=== PATIENT | male | born 1945 | race Caucasian/White ===

== ENCOUNTER 2018-10-02 10:32 | Emergency (ER) | payer MEDICARE ==
[2018-10-02] MEDS ORDERED: TAMS0.4C25 PO (10:53)
[2018-10-02] MEDS ORDERED: CRAN1TAB10 PO (10:54)
--- NOTE | 2018-10-02 11:00 | ER Report ---
History and Physical Time Seen By MD: 10:57 Hx. of Stated Complaint: HAD A CATHETER PLACED ON FRIDAY FOR [place]URIA. WAS WORKING FINE. OUTPUT STARTED TO DECREASE THIS MORNING. ONL GOT 100Ml OUT THIS MORNING. HE IS NOW HAVING PAIN AT TIP OF PENIS AND RIGHT FLANK PAIN. STATES HE HAD A CATHETER INSERTED 2-3 MONTHS AGO FOR SAME ISSUE DUE TO EBNLARGED PROSTATE HPI/ROS CHIEF COMPLAINT: Urinary retention HISTORY OF PRESENT ILLNESS: This is a 73-year-old male who presents to the emergency department for urinary retention. Patient has been traveling for work, was in [place] for a conference, had the inability to urinate, went to the emergency department where the end up placing a Mccall catheter, left in place sent home with a leg bag. Patient is on his way back through and is unable to produce urine through the Mccall catheter, has pain and distention around her bladder. Also having some mild right flank pain, has recently had enlarged prostate problems and had a Mccall catheter placed about 3 months ago. After that was removed has not had any problems. No fever chills. No nausea vomiting. No diarrhea. REVIEW OF SYSTEMS: Respiratory: No cough, no dyspnea. Cardiovascular: No chest pain, no palpitations. Gastrointestinal: No vomiting, no abdominal pain. Genitourinary: As above. Musculoskeletal: No back pain. Allergies: Coded Allergies: No Known Drug Allergies (Unverified , 10/02/18) Home Meds Active Scripts Cephalexin 500 Mg Tab (KEFLEX 500 MG TAB) 500 Mg Tablet, 500 MG PO Q6H for 10 Days, #40 TAB 0 Refills Prov:TRAVON SOLOMONP-BC 10/02/18 Belladonna Alkaloids/Opium (BELLADONNA-OPIUM 16.2-30 SUPP) 30 Mg Supp, 30 MG ID BID PRN for prn, #6 SUPP 0 Refills Prov:TRAVON SOLOMONP-BC 10/02/18 Reported Medications Cranberry Conc/C/Bacill Coag (AZO CRANBERRY TABLET) 1 Each Tablet, 1 EACH PO TID 10/02/18 Tamsulosin Hcl (FLOMAX) 0.4 Mg Cap.er.24h, 0.4 MG PO QDAY, CAP 10/02/18 Past Medical/Surgical History Patient has a past medical surgical history of wearing glasses, bilateral hernia surgery, enlarged prostate, urinary retention. Reviewed Nurses Notes: Yes Constitutional Vital Sign - Last 24 Hours 10/02/18 10/02/18 10/02/18 10/02/18 10:45 10:47 10:50 11:00 Temp 98.2 Pulse 101 114 Resp 18 B/P (MAP) 155/103 145/119 (128) Pulse Ox 98 98 O2 Delivery Room Air Room Air 10/02/18 10/02/18 10/02/18 10/02/18 11:15 14:28 14:30 14:35 Pulse 73 72 86 81 Resp 16 B/P (MAP) 168/103 (124) Pulse Ox 96 93 94 92 O2 Delivery Room Air 10/02/18 10/02/18 10/02/18 10/02/18 14:40 14:45 14:50 14:55 Pulse 74 78 74 73 Pulse Ox 94 94 97 94 10/02/18 10/02/18 15:00 15:02 Pulse 71 82 B/P (MAP) 153/89 (110) 153/89 (110) Pulse Ox 95 Physical Exam General Appearance: The patient is alert, has no immediate need for airway protection and no current signs of toxicity. Eyes: Pupils equal and round no injection. Respiratory: Chest is non tender, lungs are clear to auscultation. Cardiac: regular rate and rhythm. Gastrointestinal: Abdomen is soft and non tender, no masses, bowel sounds normal. Pain around the suprapubic region with palpation. Musculoskeletal: Neck: Neck is supple and non tender. Extremities have full range of motion and are non tender. Skin: No rashes or lesions. DIFFERENTIAL DIAGNOSIS: After history and physical exam differential diagnosis was considered for urinary retention including but not limited to medication side effect, neurologic causes, outflow obstruction including prostatic hypertrophy, and blood. Medical Decision Making Data Points Laboratory Hematology Test 10/02/18 11:35 Urine Color Candler Urine Clarity Clear Urine pH 7.0 pH (4.8-9.5) Urine Specific Eccles 1.015 Urine Protein Trace mg/dL (NEGATIVE) Urine Glucose (UA) Negative mg/dL (NEGATIVE) Urine Ketones Negative mg/dL (NEGATIVE) Urine Blood Moderate (NEGATIVE) Urine Nitrite Negative (NEGATIVE) Urine Bilirubin Small (NEGATIVE) Urine Urobilinogen 0.2 mg/dL (0.2-1.9) Urine Leukocyte Esterase Negative (NEGATIVE) Urine RBC 50-75 /HPF (0-2/HPF) Urine WBC 0-1 /HPF (0-5/HPF) Urine Squamous Epithelial Cells None /LPF (NONE-FEW) Urine Bacteria Negative /HPF (NONE-FEW) Urine Mucus None /HPF (NONE-FEW) Chemistry Test 10/02/18 11:35 Urine Color Candler Urine Clarity Clear Urine pH 7.0 pH (4.8-9.5) Urine Specific Eccles 1.015 Urine Protein Trace mg/dL (NEGATIVE) Urine Glucose (UA) Negative mg/dL (NEGATIVE) Urine Ketones Negative mg/dL (NEGATIVE) Urine Blood Moderate (NEGATIVE) Urine Nitrite Negative (NEGATIVE) Urine Bilirubin Small (NEGATIVE) Urine Urobilinogen 0.2 mg/dL (0.2-1.9) Urine Leukocyte Esterase Negative (NEGATIVE) Urine RBC 50-75 /HPF (0-2/HPF) Urine WBC 0-1 /HPF (0-5/HPF) Urine Squamous Epithelial Cells None /LPF (NONE-FEW) Urine Bacteria Negative /HPF (NONE-FEW) Urine Mucus None /HPF (NONE-FEW) Urinalysis Test 10/02/18 11:35 Urine Color Candler Urine Clarity Clear Urine pH 7.0 pH (4.8-9.5) Urine Specific Eccles 1.015 Urine Protein Trace mg/dL (NEGATIVE) Urine Glucose (UA) Negative mg/dL (NEGATIVE) Urine Ketones Negative mg/dL (NEGATIVE) Urine Blood Moderate (NEGATIVE) Urine Nitrite Negative (NEGATIVE) Urine Bilirubin Small (NEGATIVE) Urine Urobilinogen 0.2 mg/dL (0.2-1.9) Urine Leukocyte Esterase Negative (NEGATIVE) Urine RBC 50-75 /HPF (0-2/HPF) Urine WBC 0-1 /HPF (0-5/HPF) Urine Squamous Epithelial Cells None /LPF (NONE-FEW) Urine Bacteria Negative /HPF (NONE-FEW) Urine Mucus None /HPF (NONE-FEW) ED Course/Re-evaluation ED Course The patient was admitted to room. A history of physical were obtained. Differential diagnoses were considered. Initially patient appears very comfortable, unable to find a comfortable position, states he has lots of pressure around the bladder and around the to the penis. After speaking with patient, he felt that the catheter that was placed while he was in [place] was not placed properly, we did remove the catheter an 18 Swiss coud catheter was placed, did get 650 mils of bloody urine out, urine sent to lab, negative UA. After about 30 minutes patient began to feel as though he had urinate again, however unable to, the catheter that was placed was flushed with no return, I did speak with Dr. Kuo the urologist on-call, he suggested removing the catheter and trying a 20 or 22 Swiss, a 22 Swiss catheter was placed, patient tolerated well, did get proximal 0.6 mm of urine out, patient had significant relief of his symptoms. Dr. Kuo did come in to evaluate the patient. I did continue monitoring the patient for at least another hour and a half, patient still feeling okay, no urinary retention urine has cleared no el blood noted. We discussed strict bedrest and no driving for at least next 12-24 hours. [facility] [place] [facility] [place] [facility] Also sent a prescription for Keflex and a belladonna and opioid suppository. He also got 1 g of Rocephin in the ER. The patient was instructed to follow-up immediately with his urologist when he returns to [place], patient states that he has a follow-up appointment scheduled. Patient had no other questions or concerns at this time and was discharged home. 10/02/2018 1:19:10 pm I did speak with Dr. Kuo regarding the patient's case, patient states that he feels though he has to go to the bathroom again, I did a follow-up letter scan he hasn't additional 250 mL of urine in his bladder. He drained 650 mL with the initial [address] Kuo suggested placing a 20 or 22 Swiss catheter. 10/02/2018 2:00:[address] Kuo did come and evaluate the patient, no catheter was placed, patient tolerated well. 10/02/2018 2:57:45 pm patient continues to have good urinary output with the larger catheter. He will be discharged at this time. Decision to Disposition Date: Oct 02, 2018 Decision to Disposition Time: 14:56 Depart Departure Latest Vital Signs Vital Signs Date Time Temp Pulse Resp B/P (MAP) Pulse Ox O2 Delivery O2 Flow Rate FiO2 10/02/18 15:02 82 153/89 (110) 10/02/18 15:00 95 10/02/18 14:28 16 Room Air 10/02/18 10:50 98.2 Impression: Primary Impression: Acute urinary retention Condition: Improved Disposition: HOME OR SELF-CARE Referrals: UROLOGY New Scripts Cephalexin 500 Mg Tab (KEFLEX 500 MG TAB) 500 Mg Tablet 500 MG PO Q6H for 10 Days, #40 TAB 0 Refills Prov: TRAVON SOLOMON BEREAVEMENT PROGRAM COORDINATOR-BC 10/02/18 Belladonna Alkaloids/Opium (BELLADONNA-OPIUM 16.2-30 SUPP) 30 Mg Supp 30 MG ID BID PRN for prn, #6 SUPP 0 Refills Prov: TRAVON SOLOMON BEREAVEMENT PROGRAM COORDINATOR-BC 10/02/18 Patient Instructions: Urinary Retention in Men (ED) Additional Instructions: Please follow-up with urology when he returned to your home in [place]. Take the Keflex as prescribed. Use the Suppository as needed, this may make you feel tired, and no driving while using the suppository. If you are sensitive to medications, you can cut the suppository in half to see how you do with a half dose first. Keep the urinary catheter in place until he follow-up with your urologist. Although you will be on antibiotics please monitor closely for any other concerns such as pain at the catheter site, increased blood and swelling. Be sure to drink plenty of water. Get plenty of rest. Take it easy for the next 12-24 hours, I would recommend no driving and left the prostate relax. Return to the ER for any other concerns or worsening symptoms. TRAVON SOLOMON BEREAVEMENT PROGRAM COORDINATOR-BC Oct 02, 2018 11:00
[2018-10-02] MEDS ORDERED: LIDOCAINE 2% 200MG/10ML UROJET TP ONE ×2 (11:05→13:05)
[2018-10-02] MEDS ORDERED: LIDOCAINE 1% MDV 200 MG/20 ML INJ ONE (14:15)
[2018-10-02] MEDS ORDERED: cefTRIAXone 1 GM VIAL IM ONE (14:15)
[2018-10-02] MEDS ORDERED: CEPH500T7 PO (14:26)
[2018-10-02] MEDS ORDERED: BO30S PR (14:26)
[2018-10-02 15:02] VITALS: BP 153/89
--- NOTE | 2018-10-02 15:43 | CONSULTATION ---
HISTORY OF PRESENT ILLNESS This is a 73-year-old white male who I was contacted by the emergency room physician for a problem with the patient having trouble with a plugged catheter with some bleeding and clots. The patient had recently got into urinary retention while at a convention in [place] and was traveling home when his catheter plugged. The catheter was changed out. An 19-[id number]-[id number] Mccall was placed without difficulty and the bladder had immediate drainage of approximately 1000 cc of urine. The urine was yellow-tinged with minimal bloody material. After drainage of the bladder, the patient had a bladder spasm and there was some blood that followed the bladder spasm into the tubing. I explained to the patient the need to relax and not squeeze down when he was having the reflexive bladder spasm. I explained antispasmodics. PLAN The patient is agreeable to going to the [facility] for bed rest overnight. The patient wishes to have a B and O suppository to administer to himself in his hotel room to relieve the bladder spasms. The patient will be given a dose of Rocephin 1 gram IV to cover his recent manipulations. The patient will be given a script for Keflex 500 mg q.i.d. #40. The patient is to follow up with his urologist in [place] as soon as possible once he returns home. The patient believes he will get along with his catheter satisfactorily and if at any time he does not, he will seek appropriate care. The patient was given my cell phone number to call me if he has any questions. By history the patient had a similar episode approximately 3 months ago and was started on Flomax 0.4 mg every p.m. by his urologist. The patient has done well following that treatment until his recent problem with urinary retention while at the convention. IMPRESSION Urinary retention secondary to blood clot. TREATMENT 1. Replacement of Mccall. 2. Push fluids 10 glasses of water per day. 3. Strict bed rest until this coming a.m. and if all is going well and he has minimal problems with spasms or bleeding, he can resume his trip home to [place]. 4. The patient will give himself a B and O suppository once he arrives at this hotel room this afternoon. 5. The patient was given a script for Keflex 500 mg q.i.d. #40. 6. The patient is to follow up with his urologist in [place] as soon as possible. Thank you for letting me share in the care of your patient. MEGAN
== END 2018-10-02 15:00 | disposition home or self-care (01) ==
LOC: ER 11:04
DX: R33.9 Retention of urine, unspecified (principal)
CPT/HCPCS: 51702; 81001; 96372; 99284; A4340; J0696; J2001